=== PATIENT | male | born 1965 | race Caucasian/White ===

== ENCOUNTER 2019-03-02 14:13 | Emergency (ER) | payer SELFPAY ==
[~2019-03-02] VITALS: Ht 180.3 cm; Wt 90.9 kg
[2019-03-02 16:45] VITALS: BP 149/89; Ht 180.3 cm; Wt 90.9 kg
[2019-03-02] MEDS ORDERED: COZAAR50 MG PO (16:46)
[2019-03-02] MEDS ORDERED: TENORMIN25 MG PO (16:46)
== END 2019-03-02 17:23 | disposition left against medical advice (07) ==
LOC: D.ER 14:13
DX: R44.3 Hallucinations, unspecified (principal)

== ENCOUNTER 2019-03-02 16:24 | Emergency (ER) | payer SELFPAY ==
[~2019-03-02] VITALS: Ht 180.3 cm; Wt 90.9 kg
[2019-03-02 16:45] VITALS: Ht 180.3 cm; Wt 90.9 kg
[2019-03-02] MEDS ORDERED: TENORMIN25 MG PO (16:46)
[2019-03-02] MEDS ORDERED: COZAAR50 MG PO (16:46)
--- NOTE | 2019-03-02 18:15 | NUR ---
SUICIE SCREENING IS RATED AT NO RISK. DENIES ANY THOUGHTS OR INTENT OF DOING HARM TO HIMSELF. DR. DURBIN NOTIFIED OF BEHAVIOR AND ASSESSMENT. RESOURCES GIVEN TO PATIENT AND HE VERBALIZES UNDERSTANDING. NO FURTHER ORDERS AT THIS TIME.
[2019-03-02 19:33] VITALS: BP 124/80
== END 2019-03-02 19:34 | disposition home or self-care (01) ==
LOC: D.ER 16:24
DX: F41.9 Anxiety disorder, unspecified (principal); F10.129 Alcohol abuse with intoxication, unspecified; Y90.9 Presence of alcohol in blood, level not specified; I10 Essential (primary) hypertension